=== PATIENT | female | born 1940 | race Caucasian/White ===

== ENCOUNTER 2023-03-25 15:47 | Inpatient (IN) | payer OTHER ==
[2023-03-25] MEDS ORDERED: IPRATROPIUM BROM 0.5MG/2.5ML ONE (16:31)
[2023-03-25] MEDS ORDERED: ALBUTEROL 2.5 MG/3 ML NEB SOL ONE (16:31)
[2023-03-25 17:07] LABS: Absolute Lymphocytes (CBC) 0.5 K/uL (0.7-4.9); Hematocrit 42.2 % (36.0-45.0); Lymphocytes % 5.2 % (15.3-44.8); MCV 91.5 fL (80-100); MPV 7.4 fL (7.6-11.3); RBC Red Blood Cell Count 4.62 M/uL (3.86-4.86)
[2023-03-25 17:09] LABS: Protime INR 1.05
[2023-03-25] MEDS ORDERED: NA CHLORIDE 0.9% 500 ML ONE (17:35)
[2023-03-25 17:37] LABS: Albumin 2.9 g/dL (3.4-5.0); Bilirubin Total 0.4 mg/dL (0.2-1.0); Magnesium 1.8 mg/dL (1.6-2.4); Potassium 2.9 mEq/L (3.5-5.1); Protein, Total 6.8 g/dL (6.4-8.2)
[2023-03-25 18:18] LABS: Specific Gravity 1.018 (1.005-1.030); Urine Bacteria <20 /HPF (<20); Urine Bilirubin NEGATIVE (Negative); Urine Blood Trace (Negative); Urine Clarity Clear (Clear); Urine Color Yellow (Yellow); Urine Crystals Unidentified Few /HPF (None Seen); Urine Glucose NEGATIVE (Negative); Urine Mucus Slight /HPF (None Seen); Urine Protein 1+ (Negative); Urine RBC >50 /HPF (None Seen); Urine Urobilinogen Normal (Normal)
--- NOTE | 2023-03-25 18:23 | RAD REPORT ---
EXAM DESCRIPTION: CT - Head Brain Wo Cont - 03/25/2023 6:12 pm CLINICAL HISTORY: Head injury status post fall. Confusion COMPARISON: None TECHNIQUE: Computed axial tomography of the head was obtained. IV contrast was not requested. All CT scans are performed using dose optimization technique as appropriate and may include automated exposure control or mA/KV adjustment according to patient size. FINDINGS: An intracranial bleed is not seen The ventricles are normal in caliber No extra-axial fluid collection is noted. Moderate low-density areas within periventricular, deep and subcortical white matter likely represent ischemic changes secondary to small vessel disease. Left maxillary sinusitis IMPRESSION: No acute intracranial abnormality is seen If patient's symptoms persist MRI of the brain would be recommended
[2023-03-25 18:24] LABS: Arterial Blood Carboxyhemoglob 2.6 % (0-1.5); Blood Gas Oxyhemoglobin 85.5 % (94-97); Blood O2 Saturation 88.9 % (92-98.5)
--- NOTE | 2023-03-25 18:33 | RAD REPORT ---
EXAM DESCRIPTION: CT - Chest Abdomen Pelvis W Cont - 03/25/2023 6:12 pm CLINICAL HISTORY: Chest and abdominal pain status post fall Cough, hypoxia COMPARISON: none TECHNIQUE: Computed axial tomography of the chest, abdomen and pelvis was obtained. 90 cc Isovue-300 was administered intravenously. Oral contrast was not requested. This limits evaluation of bowel. All CT scans are performed using dose optimization technique as appropriate and may include automated exposure control or mA/KV adjustment according to patient size. FINDINGS: Mild tree-in-bud opacities right upper lobe. No pulmonary contusion A mediastinal hematoma is not seen No pleural effusion. No pericardial effusion. Liver, spleen, pancreas, adrenals, kidneys and bladder do not demonstrate an acute traumatic injury No evidence of diverticulitis Calcifications right common iliac artery result in a high-grade obstruction IMPRESSION: Mild tree-in-bud opacities right upper lobe may indicate an atypical pneumonia
--- NOTE | 2023-03-25 18:34 | RAD REPORT ---
EXAM DESCRIPTION: [place] Single View03/25/2023 4:39 pm CLINICAL HISTORY: Shortness of breath COMPARISON: None FINDINGS: Mild reticular opacities right lung. Left lung is clear The heart is normal size IMPRESSION: Mild reticular opacities right lung may indicate atypical pneumonia
[2023-03-25 19:16] LABS: Potassium 2.7 mEq/L (3.5-5.1)
--- NOTE | 2023-03-25 19:27 | EDPHYS ---
Physician Documentation [facility] Name: Suni Jorgensen Age: 82 yrs Sex: Female : 1940 Arrival Date: 03/25/2023 Time: 15:47 Bed 18 Private MD: ED Physician Maximino Butterfield HPI: 03/25 16:15 This 82 yrs old Female presents to ER via EMS with complaints of General Weakness. cp 16:15 The patient's problem is reported as weakness, that is generalized. Onset: The cp symptoms/episode began/occurred today. Duration: The episode is continuous. 16:15 The patient or guardian reports cough, congestion, shortness of breath. Associated cp signs and symptoms: Pertinent positives: diarrhea, Pertinent negatives: abdominal pain, chest pain, vomiting, fever. Severity of symptoms: in the emergency department the symptoms have improved. Historical: - Allergies: 16:00 PENICILLINS; db 16:00 Cipro; db - PMHx: 16:01 HIGH CHOLESTEROL; db - Immunization history:: Adult Immunizations unknown. - Social history:: Smoking status: Patient denies any tobacco usage or history of. ROS: 16:20 Constitutional: Negative for body aches, chills, fever, poor PO intake. cp 16:20 Cardiovascular: Negative for chest pain, edema. cp Exam: 16:00 ECG was reviewed by the Attending Physician. cp 16:25 Constitutional: The patient appears in no acute distress, alert, awake, cp non-diaphoretic, non-toxic, well developed, well nourished. 16:25 Head/Face: Normocephalic, atraumatic. cp 16:25 Eyes: Periorbital structures: appear normal, Conjunctiva: normal, no exudate, no injection, Sclera: no appreciated abnormality, Lids and lashes: appear normal, bilaterally. 16:25 ENT: External ear(s): are unremarkable, Nose: is normal, Mouth: Lips: moist, Oral mucosa: pink and intact, moist, Posterior pharynx: is normal, airway is patent, no erythema, no exudate. 16:25 Neck: ROM/movement: is normal, is supple, without pain, no range of motions limitations, no meningismus. 16:25 Chest/axilla: Inspection: normal, Palpation: is normal, no crepitus, no tenderness. 16:25 Cardiovascular: Rate: normal, Rhythm: regular, Edema: is not appreciated, JVD: is not appreciated. 16:25 Respiratory: the patient does not display signs of respiratory distress, Respirations: labored breathing, is not present, intercostal retractions, are absent, shallow respirations, are not present, Breath sounds: decreased breath sounds, that are moderate, throughout, stridor, is not appreciated, wheezing: is not appreciated. 16:25 Abdomen/GI: Inspection: abdomen appears normal, Bowel sounds: active, all quadrants, Palpation: abdomen is soft and non-tender, in all quadrants. 16:25 Back: CVA tenderness, is absent. 16:25 Skin: no rash present. 16:25 Neuro: Orientation: to person, place \T\ time. Mentation: is normal, Cerebellar function: is grossly normal, Motor: moves all fours, strength is normal, Sensation: is normal. 18:30 Radiologist reports: CT head negative for acute findings cp Vital Signs: 15:57 BP 201 / 110; Pulse 78; Resp 18; Temp 98.3(O); Pulse Ox 88% on R/A; Weight 53.07 kg; db Height 5 ft. 5 in. ; Pain 0/10; 16:00 BP 187 / 86; Pulse 82; Resp 16; Pulse Ox 90% on 4 lpm NC; db 17:00 BP 148 / 78; Pulse 97; Resp 16; Pulse Ox 92% on 4 lpm NC; db 18:38 BP 157 / 78; Pulse 89; Resp 18; Pulse Ox 94% on 8 lpm NC; db 15:57 Body Mass Index 19.47 (53.07 kg, 165.1 cm) db 15:57 Pain Scale: Adult db 15:57 PATIENT PLACED ON NC 4L O2 INCREASED TO 93% db 18:38 patient placed on 8L per RT db MDM: 16:11 Patient medically screened. cp 17:00 Differential Diagnosis: Bronchitis Influenza Pneumonia Other sepsis, colitis, cp dehydration. 19:30 Data reviewed: vital signs, nurses notes, lab test result(s), EKG, radiologic studies, cp CT scan, plain films. 19:30 Management of patient was discussed with the following: Hospitalist: Christiano Tran NP cp will admit after discussion. Independent interpretation of the following test(s) in the Emergency Department EKG: See my EKG interpretation above. Counseling: I had a detailed discussion with the patient and/or guardian regarding: the historical points, exam findings, and any diagnostic results supporting the discharge/admit diagnosis, lab results, radiology results. Response to treatment: the patient's symptoms have mildly improved after treatment. 03/25 16:14 Order name: CBC with Diff; Complete Time: 17:35 cp 03/25 18:44 Interpretation: Normal except: MPV 7.4; MIKAYLA% 85.1; LYM% 5.2; NEUT A 8.1; LYMA 0.5. cp 03/25 16:14 Order name: Magnesium; Complete Time: 18:05 cp 03/25 16:14 Order name: NT PRO-BNP; Complete Time: 18:05 cp 03/25 18:06 Interpretation: Abnormal: NT PRO-BNP 785. cp 03/25 16:14 Order name: PT-INR; Complete Time: 17:35 cp 03/25 16:14 Order name: Troponin HS; Complete Time: 18:05 cp 03/25 16:14 Order name: CMP; Complete Time: 18:05 cp 03/25 18:06 Interpretation: Normal except: NA 119; K 2.9; CL 78; CO2 34; GLUC 118; CRE 0.44; ALB cp 2.9; GLOB 3.9; A/G 0.7. 03/25 16:14 Order name: Lactate w/ 2H reflex if indic.; Complete Time: 17:35 cp 03/25 16:14 Order name: Influenza Screen (a \T\ B); Complete Time: 17:35 cp 03/25 16:14 Order name: SARS RAPID cp 03/25 16:14 Order name: Urinalysis W/Microscopic; Complete Time: 18:27 cp 03/25 16:37 Order name: COVID-19 SARS RT PCR; Complete Time: 18:05 cp 03/25 16:43 Order name: COVID-19 SARS RT PCR db 03/25 18:07 Order name: ABG; Complete Time: 18:52 cp 03/25 18:07 Order name: BMP: redraw; Complete Time: 19:23 cp 03/25 18:45 Order name: Blood Culture Adult (2) cp 03/25 19:08 Order name: Osmolality, Serum; Complete Time: 20:45 la1 03/25 19:08 Order name: Urine Osmolality la1 03/25 19:08 Order name: Urine Sodium Random 03/25 19:08 Order name: Urine Potassium Random 03/25 19:08 Order name: Urine Creatinine la1 03/25 16:14 Order name: XRAY Chest (1 view); Complete Time: 18:38 cp 03/25 18:38 Interpretation: Report review. 03/25 16:58 Order name: CT Head Brain wo Cont; Complete Time: 18:27 cp 03/25 16:58 Order name: CT Chest, Abdomen, Pelvis - W/Contrast; Complete Time: 18:38 cp 03/25 18:48 Order name: ARTERIAL BLOOD GAS EDIN 03/25 16:14 Order name: EKG; Complete Time: 16:15 cp 03/25 16:14 Order name: Cardiac monitoring; Complete Time: 16:27 cp 03/25 16:14 Order name: EKG - Nurse/Tech; Complete Time: 16:27 cp 03/25 16:14 Order name: IV Saline Lock; Complete Time: 16:27 cp 03/25 16:14 Order name: Labs collected and sent; Complete Time: 16:27 cp 03/25 16:14 Order name: O2 Per Protocol; Complete Time: 16:27 cp 03/25 16:14 Order name: O2 Sat Monitoring; Complete Time: 16:27 cp EC:00 Rate is 81 beats/min. Rhythm is regular. CT interval is normal. QRS interval is normal. cp QT interval is normal. Interpreted by me. Reviewed by me. Administered Medications: 19:35 Discontinued: NS 0.9% IV 500 ml IV at 100 ml/hr continuous la1 16:25 Drug: DuoNeb Nebulize (2.5 mg - 0.5 mg) 3 ml Route: Nebulizer; db 17:20 Follow up: Response: No adverse reaction db 17:39 Drug: NS 0.9% IV 500 ml Route: IV; Rate: 100 ml/hr; Site: left antecubital; db 20:28 Drug: Potassium Chloride IV 20 mEq Route: IV; Rate: calculated rate; Site: left wrist; jb4 20:28 Drug: Lactated Ringers Solution IV 1000 ml Route: IV; Rate: 50 ml/hr; Site: left jb4 antecubital; 20:29 Drug: Zithromax IVPB 500 mg Route: IVPB; Infused Over: 1 hrs; Site: left wrist; jb4 20:29 Drug: Rocephin IV 1 grams Route: IV; Rate: calculated rate; Site: left antecubital; jb4 20:29 Drug: MethylPrednisoLONE IVP 80 mg Route: IVP; Site: left antecubital; jb4 20:29 Drug: Potassium PO Effervescent Tablet 50 mEq Route: PO; jb4 Disposition: 03/26 14:25 Co-signature as Attending Physician, Maximino Butterfield MD I reviewed the patient's care rn provided by the Advanced Practice Provider and agree with the diagnosis and treatment plan. Disposition Summary: 03/25/23 19:26 Hospitalization Ordered Hospitalization Status: Inpatient Admission cp Provider: Manuel Coles cp Condition: Stable cp Problem: new cp Symptoms: have improved cp Bed/Room Type: Standard cp Location: Intensive Care Unit(03/25/23 19:35) cp Room Assignment: 1-(03/25/23 20:28) rn Diagnosis - Pneumonia in diseases classified elsewhere cp - Diarrhea, unspecified cp - Hypo-osmolality and hyponatremia cp - Weakness cp Forms: - Medication Reconciliation Form cp - SBAR form cp Signatures: Dispatcher [employer] Maximino Orr MD MD rn Attema, Lee, DATA COLLECTOR-C DATA COLLECTOR-Cla1 Jan Aaron PA PA cp Bruno Posada, RN RN jb4 Michelle Birmingham RN RN db Corrections: (The following items were deleted from the chart) 03/25 19:35 19:26 Telemetry/MedSurg (Inpatient) cp cp 19:35 19:26 cp cp 20:28 19:35 cp rn
--- NOTE | 2023-03-25 19:27 | ER ---
Nurse's Notes [facility] Name: Suni Jorgensen Age: 82 yrs Sex: Female : 1940 Arrival Date: 03/25/2023 Time: 15:47 Bed 18 Private MD: Diagnosis: Pneumonia in diseases classified elsewhere;Diarrhea, unspecified;Hypo-osmolality and hyponatremia;Weakness Presentation: 03/25 15:57 Chief complaint: EMS states: PATIENT FROM HOME CALLED EMS FOR COUGH CONGESTION, GENERAL db WEAKNESS AND DIARRHEA. PATIENT FELL YESTERDAY DENIES INJURY DENIES HITTING HEAD AND DENIES LOC. NO BLOOD THINNERS. GLUCOSE 129. PATIENT GIVEN ZOFRAN 4MG IVP. Coronavirus screen: Vaccine status: Patient reports receiving the 2nd dose of the covid vaccine. Client denies travel out of the [place] in the last 14 days. At this time, the client does not indicate any symptoms associated with coronavirus-19. Ebola Screen: Patient negative for fever greater than or equal to 101.5 degrees Fahrenheit, and additional compatible Ebola Virus Disease symptoms Patient denies exposure to infectious person. Patient denies travel to an Ebola-affected area in the 21 days before illness onset. No symptoms or risks identified at this time. Initial Sepsis Screen: Does the patient meet any 2 criteria? No. Patient's initial sepsis screen is negative. Does the patient have a suspected source of infection? No. Patient's initial sepsis screen is negative. Risk Assessment: Do you want to hurt yourself or someone else? Patient reports no desire to harm self or others. Onset of symptoms was March 25, 2023. 15:57 Method Of Arrival: EMS: [facility] db 15:57 Acuity: MALINDA 2 db Triage Assessment: 16:01 General: Appears in no apparent distress. comfortable, Behavior is calm, cooperative. db Pain: Denies pain. Neuro: Level of Consciousness is awake, alert, obeys commands, Oriented to person, place, time, situation, Appropriate for age. Historical: - Allergies: 16:00 PENICILLINS; db 16:00 Cipro; db - PMHx: 16:01 HIGH CHOLESTEROL; db - Immunization history:: Adult Immunizations unknown. - Social history:: Smoking status: Patient denies any tobacco usage or history of. Screenin:03 [facility] ED Fall Risk Assessment (Adult) History of falling in the last 3 months, db including since admission Yes- single mechanical fall (1 pt) Confusion or Disorientation No (0 pts) Intoxicated or Sedated No (0 pts) Impaired Gait No (0 pts) Mobility Assist Device Used Yes (1 pt) Altered Elimination No (0 pt) Score/Fall Risk Level 0 - 2 = Low Risk Oriented to surroundings, Maintained a safe environment. Abuse screen: Denies threats or abuse. Denies injuries from another. Nutritional screening: No deficits noted. Tuberculosis screening: No symptoms or risk factors identified. Assessment: 16:03 Reassessment: SEE TRIAGE FOR INITIAL ASSESSMENT. db 17:15 Reassessment: PATIENT AMBULATORY TO RESTROOM. db 17:38 Reassessment: Patient appears in no apparent distress at this time. Patient and/or db family updated on plan of care and expected duration. Pain level reassessed. Patient is alert, oriented x 3, equal unlabored respirations, skin warm/dry/pink. General: Appears in no apparent distress. Behavior is calm, cooperative. 18:05 Reassessment: patient in CT. db Vital Signs: 15:57 BP 201 / 110; Pulse 78; Resp 18; Temp 98.3(O); Pulse Ox 88% on R/A; Weight 53.07 kg; db Height 5 ft. 5 in. ; Pain 0/10; 16:00 BP 187 / 86; Pulse 82; Resp 16; Pulse Ox 90% on 4 lpm NC; db 17:00 BP 148 / 78; Pulse 97; Resp 16; Pulse Ox 92% on 4 lpm NC; db 18:38 BP 157 / 78; Pulse 89; Resp 18; Pulse Ox 94% on 8 lpm NC; db 15:57 Body Mass Index 19.47 (53.07 kg, 165.1 cm) db 15:57 Pain Scale: Adult db 15:57 PATIENT PLACED ON NC 4L O2 INCREASED TO 93% db 18:38 patient placed on 8L per RT db ED Course: 15:56 Patient arrived in ED. db 16:00 Triage completed. db 16:01 Jan Aaron PA is PHCP. cp 16:01 Arm band placed on Patient placed in an exam room. db 16:02 Maximino Butterfield MD is Attending Physician. cp 16:02 Maintain EMS IV. Dressing intact. Good blood return noted. Site clean \T\ dry. Gauge \T\ db site: 20G LEFT AC. 16:27 Michelle Birmingham, RN is Primary Nurse. db 16:41 XRAY Chest (1 view) In Process Unspecified. EDMS 18:14 CT Head Brain wo Cont In Process Unspecified. EDMS 18:14 CT Chest, Abdomen, Pelvis - W/Contrast In Process Unspecified. EDMS 19:11 Patient has correct armband on for positive identification. Bed in low position. Call db light in reach. Side rails up X 1. Provided Education on:. 19:25 Manuel Coles MD is Hospitalizing Provider. cp 20:20 Inserted saline lock: 22 gauge in left wrist, using aseptic technique. Blood collected. jb4 20:20 Second set of blood cultures drawn by me. jb4 21:30 Patient admitted, IV remains in place. jb4 Administered Medications: 19:35 Discontinued: NS 0.9% IV 500 ml IV at 100 ml/hr continuous la1 16:25 Drug: DuoNeb Nebulize (2.5 mg - 0.5 mg) 3 ml Route: Nebulizer; db 17:20 Follow up: Response: No adverse reaction db 17:39 Drug: NS 0.9% IV 500 ml Route: IV; Rate: 100 ml/hr; Site: left antecubital; db 20:28 Drug: Potassium Chloride IV 20 mEq Route: IV; Rate: calculated rate; Site: left wrist; jb4 20:28 Drug: Lactated Ringers Solution IV 1000 ml Route: IV; Rate: 50 ml/hr; Site: left jb4 antecubital; 20:29 Drug: Zithromax IVPB 500 mg Route: IVPB; Infused Over: 1 hrs; Site: left wrist; jb4 20:29 Drug: Rocephin IV 1 grams Route: IV; Rate: calculated rate; Site: left antecubital; jb4 20:29 Drug: MethylPrednisoLONE IVP 80 mg Route: IVP; Site: left antecubital; jb4 20:29 Drug: Potassium PO Effervescent Tablet 50 mEq Route: PO; jb4 Outcome: 19:26 Decision to Hospitalize by Provider. cp 21:29 Admitted to ICU accompanied by nurse, via stretcher, room ICU 1, with oxygen, on jb4 monitor, with chart. 21:29 Condition: stable 21:29 Discharge instructions given to patient, Instructed on the need for admit, Demonstrated understanding of instructions. 21:30 Patient left the ED. jb4 Signatures: Dispatcher [employer] EDMS Jan Aaron PA PA cp Bryson, James RN RN jb4 Michelle Birmingham RN RN db
--- NOTE | 2023-03-25 19:57 | P.HP ---
Certification for Inpatient Patient admitted to: Inpatient With expected LOS: >2 Midnights Patient will require the following post-hospital care: None Practitioner: I am a practitioner with admitting privileges, knowledge of patient current condition, hospital course, and medical plan of care. Services: Services provided to patient in accordance with Admission requirements found in Title 42 Section 412.3 of the Code of Federal Regulations Patient History Date of Service: 03/25/23 Reason for admission: Hyponatremia, pneumonia History of Present Illness: 82-year-old female with history of hypertension, hyperlipidemia presents to the emergency department with chief complaint of general weakness, shortness of breath, cough. She reports she has been feeling unwell over the course of the last 2 to 3 weeks with cough, poor oral intake over the course of last 1 week or so. She is noted to be mildly hypoxic on room air satting around 88% currently tolerating nasal cannula 3 to 4 L. She was evaluated in the ER her labs were significant for hyponatremia sodium 115 potassium 3.7 chloride 74 bicarb 33 BNP [address] head negative for acute findings CT chest abdomen pelvis with contrast shows mild tree-in-bud opacities right upper lobe may indicate atypical pneumonia. Also incident finding calcifications right common iliac artery resulting high-grade obstruction. Patient without any pain, numbness or temperature change in the right lower extremity she denies any complaints at this currently at all. Home med review does show that she takes valsartan/hydrochlorothiazide and has had poor oral intake over the course of the last week or so, she does not appear overloaded at all at this time, she will need to be admitted to the ICU given the degree of hyponatremia. Allergies Penicillins Adverse Reaction (Verified 05/14/17 13:54) peeling to hands Home Medications: Amlodipine Besylate/Benazepril [Amlodipine-Benazepril 10-20 mg] 1 each PO [id number] 05/14/17 Metoprolol Succinate [Toprol Xl] 100 mg PO BEDTIME 05/14/17 Simvastatin 20 mg PO DAILY 05/14/17 - Past Medical/Surgical History -: Hypertension -: Hyperlipidemia -: Diverticulitis -: Bilateral mastectomy -: Partial bowel resection Psychosocial/ Personal History: Patient lives at home, alone. - Family History Family History: Reviewed- Non-Contributory - Social History Smoking Status: Never smoker Alcohol use: No CD- Drugs: No Caffeine use: Yes Place of Residence: Home Review of Systems 10-point ROS is otherwise unremarkable Respiratory: Cough, Shortness of Breath, SOB with Excertion Gastrointestinal: Nausea Physical Examination - Physical Exam General: Alert, In no apparent distress, Oriented x3 HEENT: Atraumatic, PERRLA, Mucous membr. moist/pink, EOMI, Sclerae nonicteric Neck: Supple, 2+ carotid pulse no bruit, No LAD, Without JVD or thyroid abnormality Respiratory: Clear to auscultation bilaterally, Normal air movement Cardiovascular: Regular rate/rhythm, Normal S1 S2 Capillary refill: <2 Seconds Gastrointestinal: Normal bowel sounds, No tenderness Musculoskeletal: No tenderness Integumentary: No rashes Neurological: Normal speech, Normal strength at 5/5 x4 extr, Normal tone, Normal affect - Studies Laboratory Data (last 24 hrs) 03/25/23 18:32: Sodium 115 L* D, Potassium 2.7 L, BUN 15, Creatinine 0.54 L, Glucose 128 H 03/25/23 16:50: PT 11.6, INR 1.05 03/25/23 16:50: Sodium 119 L*, Potassium 2.9 L, BUN 16, Creatinine 0.44 L, Glucose 118 H, Magnesium 1.8, Total Bilirubin 0.4, AST 23, ALT 27, Alkaline Phosphatase 64 03/25/23 16:50: WBC 9.50, Hgb 14.4, Hct 42.2, Plt Count 158 Microbiology Data (last 24 hrs): 03/25/23 16:47 Nasopharnyx Influenza Type A Antigen Screen - Final 03/25/23 16:47 Nasopharnyx Influenza Type B Antigen Screen - Final Assessment and Plan - Plan Assessment: Acute hypoxic respiratory failure secondary to atypical pneumonia Hyponatremia, hypokalemia Hypertension Hyperlipidemia Plan: Acute hypoxic respiratory failure secondary to atypical pneumonia Continue supplemental oxygen as needed, antibiotics Rocephin/Zithromax, Daily room air saturations, and incentive spirometry. Hyponatremia, hypokalemia Likely secondary to use of hydrochlorothiazide and poor oral intake over the course of the last 1 week. We will start with gentle hydration LR at 50 cc an hour, recheck chemistry every 4, potassium replaced in ED. Hypertension Hold HCTZ, continue other home medications. Hyperlipidemia Continue medications. DVT PPX:Lovenox Code status:Full Discharge Plan: Home Plan to discharge in: Greater than 2 days - Advance Directives Does patient have a Living Will: Yes Does patient have a Durable POA for Healthcare: Yes - Code Status/Comfort Care Code Status Assessed: Yes (Full code) Critical Care: No Time Spent Managing Pts Care (In Minutes): 70
[2023-03-25] MEDS ORDERED: CEFTRIAXONE 1000 MG/VIAL ONE (20:07)
[2023-03-25] MEDS ORDERED: METHYLPREDNISOLONE 40 MG INJ ONE (20:07)
[2023-03-25] MEDS ORDERED: NA CHLORIDE 0.9% 250 ML ONE (20:08)
[2023-03-25] MEDS ORDERED: POTASSIUM 25 MEQ EFFERV TAB ONE (20:08)
[2023-03-25] MEDS ORDERED: Ringers Lactate 1,000 ML IV ONE (20:08)
[2023-03-25] MEDS ORDERED: KCL 20 MEQ/100 mL IVPB 100 ML IV ONE (20:08)
[2023-03-25] MEDS ORDERED: AZITHROMYCIN 500 MG INJ IVPB ONE (20:08)
[2023-03-25] MEDS ORDERED: ALBUTEROL 2.5 MG/3 ML NEB SOL NEB PRN (21:41)
[2023-03-25] MEDS ORDERED: ONDANSETRON 4 MG/2 ML VIAL IV PRN (21:41)
[2023-03-26] MEDS: Ringers Lactate 1,000 ML IV SCH ×2 (00:55→14:03)
[2023-03-26 01:02] LABS: Potassium 4.4 mEq/L (3.5-5.1)
[2023-03-26 04:27] LABS: Absolute Lymphocytes (CBC) 0.3 K/uL (0.7-4.9); Hematocrit 38.6 % (36.0-45.0); Lymphocytes % 5.3 % (15.3-44.8); MCV 91.4 fL (80-100); MPV 7.3 fL (7.6-11.3); RBC Red Blood Cell Count 4.23 M/uL (3.86-4.86)
[2023-03-26 04:48] LABS: Blood Morphology Comment NOT SEEN (NOT SEEN); Platelet Estimate ADEQ
[2023-03-26 04:54] LABS: Magnesium 1.8 mg/dL (1.6-2.4); Phosphorus 2.6 mg/dL (2.5-4.9); Thyroid Stimulating Hormone 0.39 uIU/mL (0.358-3.740); Uric Acid 3.2 mg/dL (2.6-6.0)
[2023-03-26 04:59] LABS: Potassium 4.3 mEq/L (3.5-5.1)
[2023-03-26 05:12] VITALS: BMI 19.4
[2023-03-26] MEDS ORDERED: MAGNESIUM SULFATE 1 gm IVPB 1 GM/100 ML BAG IV ONE (05:20)
[2023-03-26] MEDS ORDERED: PNEUMOCOCCAL VACCINE 0.5 ML IMVAC ONE ×2 (08:00→17:00)
[2023-03-26 08:55] LABS: Potassium 3.9 mEq/L (3.5-5.1)
[2023-03-26] MEDS: ENOXAPARIN 40 MG/0.4 ML SQ SCH (09:34)
--- NOTE | 2023-03-26 12:03 | EKG ---
Test Date: 2023-03-25 Test Time: 15:53:21 Inventory Specialist Manager: CORNELIA MEASUREMENT RESULTS: Intervals: Rate: 81 LA: 146 QRSD: 86 QT: 390 QTc: 453 [place]: P: 44 LA: 146 QRS: 63 T: 79 INTERPRETIVE STATEMENTS: Sinus rhythm with premature supraventricular complexes and with frequent and consecutive premature ventricular complexes Possible Left atrial enlargement Left ventricular hypertrophy with repolarization abnormality Abnormal ECG Compared to ECG 05/14/2017 14:10:40 Atrial premature complex(es) now present Ventricular premature complex(es) now present Left ventricular hypertrophy now present Early repolarization now present Electronically Signed On 03-26-23 12:02:04 CDT by Missael Santos
--- NOTE | 2023-03-26 12:24 | P.PN ---
Subjective Date of Service: 03/26/23 Chief Complaint: Hyponatremia, pneumonia No acute events since admission. She reports that her shortness of breath has improved. Sodium is gradually improving. She denies any fevers, chills, chest pain, or palpitations. Review of Systems 10-point ROS is otherwise unremarkable Respiratory: Cough, Shortness of Breath Physical Examination - Vital Signs Temperature: 97.9 F Blood Pressure: 140/95 Pulse: 112 Respirations: 20 Pulse Ox (%): 99 - Physical Exam General: Alert, In no apparent distress, Oriented x3 HEENT: Atraumatic, Mucous membr. moist/pink, Sclerae nonicteric Neck: JVD not distended Respiratory: Diminished, Rhonchi/gurgles (faint upper right lung pickard) Cardiovascular: No edema, Normal S1 S2, No gallops, No rubs, No murmurs, Other (tachycardic rate) Gastrointestinal: Normal bowel sounds, Soft and benign, Non-distended, No tenderness, No rebound, No guarding Musculoskeletal: No clubbing Integumentary: No rashes Neurological: Normal speech, Normal affect - Studies Laboratory Data (last 24 hrs) 03/25/23 18:32: Sodium 115 L* D, Potassium 2.7 L, BUN 15, Creatinine 0.54 L, Glucose 128 H 03/25/23 16:50: PT 11.6, INR 1.05 03/25/23 16:50: Sodium 119 L*, Potassium 2.9 L, BUN 16, Creatinine 0.44 L, Glucose 118 H, Magnesium 1.8, Total Bilirubin 0.4, AST 23, ALT 27, Alkaline Phosphatase 64 03/25/23 16:50: WBC 9.50, Hgb 14.4, Hct 42.2, Plt Count 158 Microbiology Data (last 24 hrs): 03/25/23 16:47 Nasopharnyx Influenza Type A Antigen Screen - Final 03/25/23 16:47 Nasopharnyx Influenza Type B Antigen Screen - Final Assessment And Plan - Plan # Sepsis likely secondary to Atypical Pneumonia # Left Maxillary Sinusitis She meets SIRS criteria based on HR > 90 bpm and RR > 20 breaths/min, and the suspected source is pneumonia. Legionella is on the differential given hyponatremia. - Radiology: - Chest x-ray = "mild reticular opacities right lung may indicate atypical pneumonia." - CT chest/abdomen/pelvis = "mild tree-in-bud opacities right upper lobe may indicate an atypical pneumonia." - CT head = "no acute intracranial abnormality is seen." - Sepsis order set was initiated - Initial Lactate was 0.9 - Blood cultures drawn - Broad spectrum antibiotics started: Ceftriaxone + Doxycycline - In regards to fluids: - 30 mL/kg of IV fluids was not administered given SBP > 90, MAP > 65, lactic acid < 4 # Severe Hyponatremia # Hypokalemia - Suspect due to hydrochlorothiazide use - Continue IV fluids for now - Nephrology consulted - recommendations appreciated # Hypertension - Hold home anti-hypertensives due to concern for sepsis # Hyperlipidemia - Continue home atorvastatin Manuel Coles M.D.
[2023-03-26 13:02] LABS: Albumin 2.8 g/dL (3.4-5.0); Bilirubin Total 0.4 mg/dL (0.2-1.0); Potassium 4.1 mEq/L (3.5-5.1); Protein, Total 6.9 g/dL (6.4-8.2); Uric Acid 3.1 mg/dL (2.6-6.0)
[2023-03-26] MEDS: DOXYCYCLINE 100 MG in NA CHLORIDE 0.9% 100 ML IVPB SCH ×2 (13:56→20:31)
[2023-03-26] MEDS ORDERED: AZITHROMYCIN IV 500 MG in NA CHLORIDE 0.9% 250 ML IVPB SCH (18:00)
[2023-03-26] MEDS ORDERED: CEFTRIAXONE 1,000 MG in NA CHLORIDE 0.9% 50 ML IVPB SCH (20:00)
[2023-03-26] MEDS: ATORVASTATIN 10 MG TAB PO SCH (20:31)
[2023-03-26 20:58] LABS: Potassium 4.4 mEq/L (3.5-5.1)
[2023-03-26] MEDS ORDERED: NACHLORIDE 0.45% 1,000 ML IV SCH (22:00)
[2023-03-26] MEDS ORDERED: D5W 300 ML IV SCH (22:00)
[2023-03-27] MEDS ORDERED: NACHLORIDE 0.45% 1,000 ML IV SCH
[2023-03-27] MEDS ORDERED: D5W IV SCH ×2 (02:09→02:17)
[2023-03-27] MEDS ORDERED: DESMOPRESSIN 4 MCG/ML AMP SQ ONE ×2 (02:19→03:02)
[2023-03-27] MEDS ORDERED: DESMOPRESSIN 4 MCG/ML AMP IV ONE (02:23)
--- NOTE | 2023-03-27 03:44 | CON ---
Date of Consultation: 03/26/2023 Chief Complaint: Hyponatremia, pneumonia. History Of Present Illness: The patient is an 82-year-old woman with history of hypertension, hyperl ipidemia. She recently had office visit with her primary physician and medication for blood pressure were modified. Apparently, she was started on HCTZ in the recent past. She came to the emergency r oom progressively worse, weakness, shortness of breath, and cough. She was found to have pneumonia. She had hypoxemic respiratory failure and SpO2 was 88%. Patient currently on nasal cannula and admi tted to ICU. ER workup showed significant hyponatremia. Sodium level was 118, subsequently dropped to 115; potassium 3.7; chloride 74; bicarbonate 33, BNP 785. CT scan of the head was negative for ac t[place] finding. CT scan of the chest and pelvis with contrast showed mild opacities in right upper lobe , which may indicate atypical pneumonia. Patient was having cough. She was complaining of fever. R ecently, she was started on valsartan and hydrochlorothiazide, although she had poor p.o. intake. Sh e denied diarrhea and she denies nausea, vomiting. She denies confusion or seizure. Review of Systems: Constitutional: Denies fever, chills. Eyes: Denies vision changes. Ears, Nose, Mouth, and Throat: Denies sore throat or earache. Respiratory: Denies chest pain, palpitation. GI: Denies nausea, vomiting. : Denies dysuria, hematuria. All other systems reviewed and all are negative. Past Medical History: Hypertension, hyperlipidemia, diverticulitis, bilateral mastectomy, partial caron wel obstruction. Family History: No kidney disease in family. Social History: Denies tobacco, alcohol, or illicit drugs. Physical Examination: General: Patient is awake, alert, follows commands. Eyes: Anicteric sclerae. EOMI. Ears, Nose, Mouth, and Throat: Oral mucosa moist. No pallor. Neck: Supple. No bruits. Lungs: Diminished breath sounds at bases. Heart: S1 and S2. Abdomen: Soft, benign. Extremities: No edema. No clubbing. No cyanosis. Neurologic: Normal speech. No tremor. Normal strength at 5/5 in 4 extremities. Laboratory Data: lab work showed sodium 119, potassium 2.9, BUN 16, creatinine 0.44, glucose 118. S ubsequently, sodium dropped to 115, potassium 2.7, BUN 15, creatinine 0.54, glucose 128. Impression And Plan: Hypoxemic respiratory failure with pneumonia. Patient is on antibiotics. The patient has history of hypertension and HCTZ was stopped due to progressively worse hyponatremia. Th e patient was started on IV fluids for hyponatremia, likely culprit for hyponatremia is HCTZ, althoug h due to the fact that patient has pneumonia, high ADH state is also a culprit for hyponatremia. Mateo id HCTZ. Patient will continue IV fluids. The plan is to monitor electrolytes. The patient was fou nd to have hypokalemia, receives replacement. Monitor potassium level. The patient needs to have TS H level checked for possible hypothyroidism. EB/MODL Voice ID: [id number] Report ID: [id number]
[2023-03-27 04:38] LABS: Absolute Lymphocytes (CBC) 0.8 K/uL (0.7-4.9); Hematocrit 37.1 % (36.0-45.0); Lymphocytes % 11.8 % (15.3-44.8); MCV 92.1 fL (80-100); MPV 7.1 fL (7.6-11.3); RBC Red Blood Cell Count 4.03 M/uL (3.86-4.86)
[2023-03-27 04:56] LABS: Potassium 3.5 mEq/L (3.5-5.1)
[2023-03-27 04:57] LABS: Magnesium 1.9 mg/dL (1.6-2.4); Phosphorus 1.6 mg/dL (2.5-4.9)
[2023-03-27] MEDS ORDERED: D5W 300 ML IV SCH (05:30)
[2023-03-27] MEDS ORDERED: POTASSIUM CL SA 10 MEQ TAB PO ONE (08:00)
[2023-03-27 08:04] LABS: Potassium 3.3 mEq/L (3.5-5.1)
[2023-03-27] MEDS: POTASS/SODIUM PHOSPHATE 1 PKT POWD.PACK PO SCH ×3 (08:12→09:40)
[2023-03-27] MEDS: ENOXAPARIN 40 MG/0.4 ML SQ SCH (08:21)
[2023-03-27] MEDS: CEFTRIAXONE 1,000 MG in NA CHLORIDE 0.9% 50 ML IVPB SCH (08:30)
[2023-03-27] MEDS: HYDRALAZINE HCL 20 MG/ML VIAL IV PRN ×2 (09:39→16:33)
[2023-03-27] MEDS: DOXYCYCLINE 100 MG in NA CHLORIDE 0.9% 100 ML IVPB SCH ×2 (09:44→20:17)
[2023-03-27 12:14] LABS: Potassium 3.5 mEq/L (3.5-5.1)
--- NOTE | 2023-03-27 14:30 | P.PN ---
Subjective Date of Service: 03/27/23 Chief Complaint: Hyponatremia, pneumonia Subjective: No new changes Physical Examination - Vital Signs Temperature: 97.2 F Blood Pressure: 187/84 Pulse: 96 Respirations: 17 Pulse Ox (%): 90 - Physical Exam General: Other (appears as her stated age) HEENT: Atraumatic, Normocephalic Neck: Supple, JVD not distended Respiratory: Other (symmetric chest expansion) Cardiovascular: No rubs, No murmurs Gastrointestinal: Soft and benign, No rebound Musculoskeletal: No clubbing Integumentary: No warmth Neurological: Normal tone Urinary: Other (no bladder distention) External genitalia: Deferred Rectal: Deferred Assessment And Plan - Plan # Hyponatremia 2/2 high ADH state from dyspnea/HCTZ + hypokalemia + low solute intake Serum Na 119 on adm, improved to 128, decreased to 123 again Give Tolvaptan po x 1 dose when available BNP sig elevated. Minimize IVF. Encourage to inc po solid food intake tid Avoid thiazide permanently # Htn Resume Metoprolol XL 100 mg po daily Resume Valsartan 40 mg po daily Labetalol IV prn Hydralazine IV prn Avoid HCTZ # Acute respi failure 2/2 pna Abx F/u cultures # Sepsis 2/2 pna & left maxillary sinusitis Abx # Hypokalemia KCl repletion prn # HLD Statin
[2023-03-27] MEDS: VALSARTAN 40 MG TAB PO SCH (17:06)
[2023-03-27] MEDS: METOPROLOL XL 100 MG TAB PO SCH (17:06)
[2023-03-27] MEDS: ATORVASTATIN 10 MG TAB PO SCH (20:18)
--- NOTE | 2023-03-28 00:30 | P.PN ---
Subjective Date of Service: 03/28/23 Chief Complaint: Hyponatremia, pneumonia She reports that her symptoms are gradually improving. Sodium is trending upwards. She denies any fevers, chills, chest pain, or palpitations. Review of Systems 10-point ROS is otherwise unremarkable General: Weakness (generalized) Physical Examination - Vital Signs Temperature: 98.6 F Blood Pressure: 164/63 Pulse: 84 Respirations: 16 Pulse Ox (%): 94 Assessment And Plan - Plan - Physical Exam General: Alert, In no apparent distress, Oriented x3 HEENT: Atraumatic, Mucous membr. moist/pink, Sclerae nonicteric Respiratory: Diminished, Rhonchi/gurgles (faint upper right lung pickard) Cardiovascular: No edema, No murmurs, Regular rate/rhythm Gastrointestinal: Soft, Non-distended, No tenderness Musculoskeletal: No clubbing Integumentary: No rashes Neurological: Normal speech, Normal affect # Sepsis likely secondary to Atypical Pneumonia # Left Maxillary Sinusitis She meets SIRS criteria based on HR > 90 bpm and RR > 20 breaths/min, and the suspected source is pneumonia. Legionella is on the differential given hyponatremia. - Radiology: - Chest x-ray = "mild reticular opacities right lung may indicate atypical pneumonia." - CT chest/abdomen/pelvis = "mild tree-in-bud opacities right upper lobe may indicate an atypical pneumonia." - CT head = "no acute intracranial abnormality is seen." - Sepsis order set was initiated - Initial Lactate was 0.9 - Blood cultures drawn - Broad spectrum antibiotics started: Ceftriaxone + Doxycycline - In regards to fluids: - 30 mL/kg of IV fluids was not administered given SBP > 90, MAP > 65, lactic acid < 4 # Severe Hyponatremia # Hypokalemia - Suspect due to hydrochlorothiazide use - Continue IV fluids for now - Nephrology consulted - recommendations appreciated - Ordered TSH # Hypertension - Hold home anti-hypertensives due to concern for sepsis # Hyperlipidemia - Continue home atorvastatin Manuel Coles M.D.
[2023-03-28 02:58] LABS: Absolute Lymphocytes (CBC) 1.2 K/uL (0.7-4.9); Hematocrit 38.5 % (36.0-45.0); Lymphocytes % 15.4 % (15.3-44.8); MCV 91.8 fL (80-100); MPV 7.2 fL (7.6-11.3); RBC Red Blood Cell Count 4.19 M/uL (3.86-4.86)
[2023-03-28 03:11] LABS: Magnesium 1.7 mg/dL (1.6-2.4); Phosphorus 1.9 mg/dL (2.5-4.9)
[2023-03-28 03:15] LABS: Potassium 3.5 mEq/L (3.5-5.1)
[2023-03-28] MEDS ORDERED: POTASSIUM CL SA 10 MEQ TAB PO ONE ×2 (06:30→08:57)
[2023-03-28] MEDS: CEFTRIAXONE 1,000 MG in NA CHLORIDE 0.9% 50 ML IVPB SCH (07:48)
[2023-03-28] MEDS: ENOXAPARIN 40 MG/0.4 ML SQ SCH (07:49)
[2023-03-28] MEDS: VALSARTAN 40 MG TAB PO SCH (07:49)
[2023-03-28] MEDS: HYDRALAZINE HCL 20 MG/ML VIAL IV PRN (07:53)
[2023-03-28] MEDS: DOXYCYCLINE 100 MG in NA CHLORIDE 0.9% 100 ML IVPB SCH ×2 (09:00→20:10)
[2023-03-28] MEDS ORDERED: TOLVAPTAN 15 MG TABLET PO SCH (10:00)
[2023-03-28 11:07] LABS: Potassium 3.6 mEq/L (3.5-5.1)
[2023-03-28] MEDS: LABETALOL 20 MG/4ML SYRINGE IV PRN (12:43)
[2023-03-28 16:15] LABS: Potassium 4.3 mEq/L (3.5-5.1)
[2023-03-28] MEDS ORDERED: D5W 1,000 ML IV SCH (20:00)
--- NOTE | 2023-03-28 20:20 | P.PN ---
Subjective Date of Service: 03/28/23 Chief Complaint: Hyponatremia, pneumonia No acute events overnight. She states that her breathing has improved, but she has been experiencing generalized weakness. She denies any fevers, chills, chest pain, or palpitations. Review of Systems 10-point ROS is otherwise unremarkable General: Weakness (generalized) Respiratory: Shortness of Breath Physical Examination - Vital Signs Temperature: 98.6 F Blood Pressure: 169/91 Pulse: 83 Respirations: 16 Pulse Ox (%): 96 Assessment And Plan - Plan - Physical Exam General: Alert, In no apparent distress, Oriented x3 HEENT: Atraumatic, Mucous membr. moist/pink, Sclerae nonicteric Respiratory: Diminished, Rhonchi/gurgles (faint upper right lung pickard) Cardiovascular: No edema, No murmurs, Regular rate/rhythm Gastrointestinal: Soft, Non-distended, No tenderness Musculoskeletal: No clubbing Integumentary: No rashes Neurological: Normal speech, Normal affect # Sepsis likely secondary to Atypical Pneumonia # Left Maxillary Sinusitis She meets SIRS criteria based on HR > 90 bpm and RR > 20 breaths/min, and the suspected source is pneumonia. Legionella is on the differential given hyponatremia. - Radiology: - Chest x-ray = "mild reticular opacities right lung may indicate atypical pneumonia." - CT chest/abdomen/pelvis = "mild tree-in-bud opacities right upper lobe may indicate an atypical pneumonia." - CT head = "no acute intracranial abnormality is seen." - Sepsis order set was initiated - Initial Lactate was 0.9 - Blood cultures drawn - Broad spectrum antibiotics started: Ceftriaxone + Doxycycline - In regards to fluids: - 30 mL/kg of IV fluids was not administered given SBP > 90, MAP > 65, lactic acid < 4 # Severe Hyponatremia # Hypokalemia - Suspect due to hydrochlorothiazide use - Continue IV fluids for now - Nephrology consulted - recommendations appreciated Plan to start desmopressin - TSH = 0.39 # Hypertension - Hold home anti-hypertensives due to concern for sepsis # Hyperlipidemia - Continue home atorvastatin Manuel Coles M.D.
[2023-03-28] MEDS: METOPROLOL XL 100 MG TAB PO SCH (21:26)
[2023-03-28] MEDS: ATORVASTATIN 10 MG TAB PO SCH (21:27)
--- NOTE | 2023-03-29 02:24 | PN ---
Date of Progress Note: 03/28/2023 Chief Complaint: Hyponatremia, pneumonia. History Of Present Illness: The patient came to the hospital because of shortness of breath, general ized weakness, dyspnea. She was found to have pneumonia and hyponatremia. She had a CT scan done wi contrast. Sodium on arrival to admission was 119 and improved to 128 and then decreased to 123. The patient received tolvaptan 1 dose yesterday and BNP is elevated. Plan is to minimize IV fluids. Review of Systems: Denies chest pain, palpitation. Physical Examination: Lungs: Diminished breath sounds at bases. Heart: S1, S2. Abdomen: Soft, benign. Extremities: No edema. Impression And Plan: 1.Hyponatremia secondary to ADH state from dyspnea, pneumonia. In addition, the patient had hyponat remia secondary to HCTZ complicated by hypokalemia due to low solute intake and diuretic treatment. Plan is to avoid thiazide permanently. Monitor BNP. Minimize IV fluids. Continue hydration by mout h. Avoid normal saline infusion. At this point, sodium level is improving. Monitor BMP closely. 2.Hypertension. Resume metoprolol XL 100 p.o. daily. The patient is on valsartan for blood pressur e control. Avoid HCTZ. 3.Acute respiratory failure secondary to pneumonia. Continue antibiotics. 4.Sepsis secondary to pneumonia and left maxillary sinusitis on antibiotics. 5.Hypokalemia. Monitor magnesium and phosphorus level. Continue treatment with potassium chloride and potassium phosphate. Monitor magnesium level closely and eulalia nue IV magnesium sulphate. EB/MODL Voice ID: [id number] Report ID: [id number]
[2023-03-29 03:48] LABS: Magnesium 1.9 mg/dL (1.6-2.4); Phosphorus 2.1 mg/dL (2.5-4.9); Potassium 4.1 mEq/L (3.5-5.1)
[2023-03-29] MEDS: LABETALOL 20 MG/4ML SYRINGE IV PRN (05:47)
[2023-03-29] MEDS: POTASS/SODIUM PHOSPHATE 1 PKT POWD.PACK PO SCH ×3 (06:46→10:00)
[2023-03-29] MEDS ORDERED: POTASS/SODIUM PHOSPHATE 1 PKT POWD.PACK PO SCH ×2 (07:00→09:00)
--- NOTE | 2023-03-29 07:16 | RAD REPORT ---
EXAM DESCRIPTION: US - Renal Ultrasound-Complete - 03/29/2023 5:48 am CLINICAL HISTORY: uncontrolled htn COMPARISON: Chest Abdomen Pelvis W Cont dated 03/25/2023 FINDINGS: Both kidneys are normal in size, shape and echotexture. The right kidney measures . No hydronephrosis, focal mass or perinephric fluid. The left kidney measures . No hydronephrosis, focal mass or perinephric fluid. The urinary bladder is incompletely distended without gross abnormality seen. IMPRESSION: No evidence of hydronephrosis. Unremarkable renal ultrasound.
[2023-03-29] MEDS ORDERED: DOXYCYCLINE HYCLATE 100MG INJ ONE (07:40)
[2023-03-29] MEDS: VALSARTAN 40 MG TAB PO SCH ×2 (08:06→21:37)
[2023-03-29] MEDS: AMLODIPINE 2.5 MG TAB PO SCH (08:06)
[2023-03-29] MEDS: ENOXAPARIN 40 MG/0.4 ML SQ SCH (08:07)
[2023-03-29] MEDS: CEFTRIAXONE 1,000 MG in NA CHLORIDE 0.9% 50 ML IVPB SCH (08:07)
[2023-03-29] MEDS: DOXYCYCLINE 100 MG in NA CHLORIDE 0.9% 100 ML IVPB SCH ×2 (08:08→21:38)
[2023-03-29 08:59] LABS: Specific Gravity 1.012 (1.005-1.030); Urine Bacteria None Seen /HPF (<20); Urine Bilirubin NEGATIVE (Negative); Urine Blood Negative (Negative); Urine Clarity Clear (Clear); Urine Color Light-Yellow (Yellow); Urine Glucose NEGATIVE (Negative); Urine Protein NEGATIVE (Negative); Urine Urobilinogen Normal (Normal); Urine pH 6.5 (5.0-7.0)
--- NOTE | 2023-03-29 13:50 | P.PN ---
Subjective Date of Service: 03/29/23 Chief Complaint: Hyponatremia, pneumonia No acute events overnight. Her sodium is improving. Although her breathing is improving, she requires 4 L nasal cannula. She states that she is not on oxygen at home. She denies any fevers, chills, chest pain, or palpitations. Review of Systems 10-point ROS is otherwise unremarkable General: Weakness (generalized) Physical Examination - Vital Signs Temperature: 98.2 F Blood Pressure: 148/69 Pulse: 79 Respirations: 16 Pulse Ox (%): 95 Assessment And Plan - Plan - Physical Exam General: Alert, In no apparent distress, Oriented x3 HEENT: Atraumatic, Mucous membr. moist/pink, Sclerae nonicteric Respiratory: Diminished, Rhonchi/gurgles (faint upper right lung pickard) Cardiovascular: No edema, No murmurs, Regular rate/rhythm Gastrointestinal: Soft, Non-distended, No tenderness Musculoskeletal: No clubbing Integumentary: No rashes Neurological: Normal speech, Normal affect # Sepsis likely secondary to Atypical Pneumonia # Left Maxillary Sinusitis She meets SIRS criteria based on HR > 90 bpm and RR > 20 breaths/min, and the suspected source is pneumonia. Legionella is on the differential given hyponatremia. - Radiology: - Chest x-ray = "mild reticular opacities right lung may indicate atypical pneumonia." - CT chest/abdomen/pelvis = "mild tree-in-bud opacities right upper lobe may indicate an atypical pneumonia." - CT head = "no acute intracranial abnormality is seen." - Sepsis order set was initiated - Initial Lactate was 0.9 - Blood cultures drawn - Broad spectrum antibiotics started: Ceftriaxone + Doxycycline - In regards to fluids: - 30 mL/kg of IV fluids was not administered given SBP > 90, MAP > 65, lactic acid < 4 - She remains on 4 L nasal cannula - wean as tolerated - Obtain ambulatory oxygen testing to see if she qualifies for home oxygen # Severe Hyponatremia # Hypokalemia - Suspect due to hydrochlorothiazide use - Continue IV fluids for now - Nephrology consulted - recommendations appreciated S/p desmopressin - TSH = 0.39 # Hypertension - Hold home anti-hypertensives due to concern for sepsis # Hyperlipidemia - Continue home atorvastatin Manuel Coles M.D.
--- NOTE | 2023-03-29 20:46 | P.PN ---
Date of Service: 03/30/23 Subjective: ROS: 10 point ROS as noted above, otherwise negative Physical Exam: Gen: Alert,oriented, NAD HEENT: normal conjunctiva, sclera anicteric CV: regular rate & rhythm, no edema Pulm: non-labored respirations on 3L NC, diminished at bases b/l, rh onchi/gurgles Abd: soft, non-tender, non-distended MSK: no joint tenderness Neuro: normal speech, normal affect, moves all extremities Problem List: 1. Sepsis likely secondary to Atypical Pneumonia 2. Left Maxillary Sinusitis 3. Severe Hyponatremia 4. Hypokalemia 5. Hypertension 6. Hyperlipidemia PLAN CT chest/abdomen/pelvis (03/25):mild tree-in-bud opacities right upper lobe may indicate an atypical pneumonia. CT head(03/25): negative Blood culture: NGTD Urine culture: pending continue empiric rocephin and doxycycline (03/27-) wean oxygen as tolerated Continue IVF Nephrology consulted S/p desmopressin Hold home anti-hypertensives due to concern for sepsis Continue home atorvastatin VTE: Lovenox
[2023-03-29] MEDS ORDERED: D5W 1,000 ML IV SCH (21:00)
[2023-03-29] MEDS: METOPROLOL XL 100 MG TAB PO SCH (21:37)
[2023-03-29] MEDS: ATORVASTATIN 10 MG TAB PO SCH (21:38)
--- NOTE | 2023-03-30 00:48 | PN ---
Date of Progress Note: 03/29/2023 Chief Complaint: Hyponatremia hypoosmolar state, pneumonia. History Of Present Illness: The patient came to the hospital because of shortness of breath, general ized weakness, and dyspnea. She was found to have pneumonia and hyponatremia. She had CT scan done with contrast. Sodium on arrival to the hospital was 119 and improved gradually to 128 and then decr eased to 123. The patient received tolvaptan 1 dose and IV fluids were minimized. The patient is im proving. She denies shortness of breath. Sodium level is gradually improving. The patient received D5W to slow down correction of the hyponatremia. Review of Systems: Denies chest pain or palpitation. Physical Examination: Lungs: Clear to auscultation bilaterally. Heart: S1 and S2. Abdomen: Soft. Extremities: No edema. Assessment: 1.Hyponatremia secondary to ADH state from dyspnea, pneumonia, and in addition, the patient had hypo natremia secondary to HCTZ complicated by hypokalemia and hypophosphatemia due to low solute intake a nd diuretic treatment. Plan is to avoid thiazide permanently. Monitor BNP. Minimize IV fluids. Co ntinue hydration with D5W as needed. Avoid normal saline infusion. Continue to monitor BMP closely. 2.Hypertension. Metoprolol was resumed and adjust medication. Avoid HCTZ. 3.Respiratory failure secondary to pneumonia. Continue antibiotics. 4.Sepsis secondary to pneumonia and left maxillary sinusitis, on antibiotics. 5.Hypokalemia. Monitor magnesium and phosphorus level. Continue treatment with potassium chloride and potassium phosphate. EB/MODL Voice ID: [id number] Report ID: [id number]
[2023-03-30 03:25] LABS: Phosphorus 2.5 mg/dL (2.5-4.9); Potassium 4.1 mEq/L (3.5-5.1)
[2023-03-30] MEDS ORDERED: DOXYCYCLINE HYCLATE 100MG INJ ONE (07:35)
[2023-03-30] MEDS: DOXYCYCLINE 100 MG in NA CHLORIDE 0.9% 100 ML IVPB SCH ×2 (08:11→21:55)
[2023-03-30] MEDS: CEFTRIAXONE 1,000 MG in NA CHLORIDE 0.9% 50 ML IVPB SCH (08:12)
[2023-03-30] MEDS: ENOXAPARIN 40 MG/0.4 ML SQ SCH (08:12)
[2023-03-30] MEDS: AMLODIPINE 2.5 MG TAB PO SCH (08:13)
[2023-03-30] MEDS: VALSARTAN 40 MG TAB PO SCH ×2 (08:13→21:55)
[2023-03-30 21:16] VITALS: O2SAT 91
[2023-03-30] MEDS: ATORVASTATIN 10 MG TAB PO SCH (21:56)
[2023-03-30] MEDS: METOPROLOL XL 100 MG TAB PO SCH (21:56)
[2023-03-30] MEDS: D5W 1,000 ML IV SCH (22:03)
--- NOTE | 2023-03-31 02:30 | PN ---
Date of Progress Note: 03/30/2023 Chief Complaint: Hyponatremia, hyposmolar state, pneumonia. History Of Present Illness: The patient came to the hospital because of shortness of breath, general ized weakness, and dyspnea. She was found to have pneumonia and hyponatremia. She had CT scan done with IV contrast. Sodium on arrival to the hospital was 119 and improved gradually to 128, then decr eased to 123. The patient received tolvaptan 1 dose and IV fluids were minimized. The patient is im proving. She denies shortness of breath. Denies nausea, vomiting. Denies dysuria. She was found t o have hematuria. Review of Systems: Denies chest pain, palpitation. Physical Examination: Lungs: Clear to auscultation bilaterally. Heart: S1, S2. Abdomen: Soft, benign. Extremities: No edema. Impression And Plan: 1.Hyponatremia secondary to ADH state from dyspnea, pneumonia and in addition patient had hyponatrem ia secondary to HCTZ, complicated by hypokalemia and hypophosphatemia due to low solute intake and di uretic treatment. Plan is to avoid thiazide permanently. Monitor BNP. Minimize IV fluids. Continu e hydration with D5W as needed. 2.Hypertension. Metoprolol was resumed and plan is to adjust medication. 3.Respiratory failure secondary to pneumonia. Continue antibiotics. 4.Sepsis secondary to pneumonia and left maxillary sinus on antibiotics. 5.Hypokalemia. Monitor magnesium and phosphorus level . Continue treatment with potassium chloride and potassium phosphate as needed according to lab results . SUKHJINDER/MODL Voice ID: [id number] Report ID: [id number]
[2023-03-31 03:35] LABS: Potassium 3.9 mEq/L (3.5-5.1)
--- NOTE | 2023-03-31 07:18 | RAD REPORT ---
EXAM DESCRIPTION: RAD - Chest Single View - 03/31/2023 6:36 am CLINICAL HISTORY: pneumonia COMPARISON: Chest Single View dated 03/25/2023; Chest Abdomen Pelvis W Cont dated 03/25/2023 FINDINGS: Lines: None. Lungs: Improved lung volumes. Minimal right middle lobe nodularity is similar. Pleural: No significant pleural effusions or pneumothorax. Cardiac: The heart size is within normal limits. Mediastinum: Within normal limits. Bones: No acute fractures. Other: None IMPRESSION: Improved lung volumes. Mild residual nodularity in the right middle lobe. No consolidati ve airspace disease or edema.
[2023-03-31 08:49] VITALS: BP 189/93; TEMP 98.2
[2023-03-31] MEDS ORDERED: POTASSIUM CL SA 10 MEQ TAB PO ONE (09:00)
[2023-03-31] MEDS: AMLODIPINE 2.5 MG TAB PO SCH (09:52)
[2023-03-31] MEDS: DOXYCYCLINE 100 MG in NA CHLORIDE 0.9% 100 ML IVPB SCH (09:53)
[2023-03-31] MEDS: ENOXAPARIN 40 MG/0.4 ML SQ SCH (09:53)
[2023-03-31] MEDS: CEFTRIAXONE 1,000 MG in NA CHLORIDE 0.9% 50 ML IVPB SCH (09:54)
[2023-03-31] MEDS: VALSARTAN 40 MG TAB PO SCH (10:01)
[2023-03-31] MEDS: D5W 1,000 ML IV SCH (10:20)
[2023-03-31] MEDS ORDERED: LOSARTAN POTASSIUM 50 MG TABLET PO ONE (10:40)
[2023-04-01 12:03] LABS: Albumin, (SPE) 2.8 g/dL (3.8-4.8); Alpha-1-Globulins 0.3 g/dL (0.2-0.3); Alpha-2-Globulins 0.7 g/dL (0.5-0.9); Gamma Globulins 1.1 g/dL (0.8-1.7); INTERPRETATION REPORT
[2023-04-05 00:07] LABS: Beta Globulin 24 HR Urine 16 %; Gamma Globulin, 24hr Urine 15 %; Interpretation: REPORT; Protein/Crea Ratio in g 326 mg/g creat (<150); Protein/Crea Ratio in mg 0.326 (<0.150); Urine Alpha-2-Globulins, 24 Hr 16 %; Urine PEP Abn Protein Band1 REPORT; Urine Total Volume 24 Hours 1200 mL
== END 2023-03-31 12:25 | disposition home or self-care (01) | DRG 871 ==
LOC: ER 15:47 → ERHOLD 19:39 → 3RD-ICU 20:55 → 2ND 03-26 22:15
PROVIDERS: ADMIT Internal Medicine; ATTEND Hospitalist
DX: A41.9 Sepsis, unspecified organism (principal); J18.9 Pneumonia, unspecified organism; J96.01 Acute respiratory failure with hypoxia; E87.1 Hypo-osmolality and hyponatremia; I10 Essential (primary) hypertension; E87.6 Hypokalemia; J32.0 Chronic maxillary sinusitis; E83.39 Other disorders of phosphorus metabolism; E78.00 Pure hypercholesterolemia, unspecified; T50.2X5A Adverse effect of carbonic-anhydrase inhibitors, benzothiadiazides and other diuretics, initial encounter; R31.9 Hematuria, unspecified; Z60.2 Problems related to living alone; Z88.1 Allergy status to other antibiotic agents; Z88.0 Allergy status to penicillin; Z90.13 Acquired absence of bilateral breasts and nipples; Z79.899 Other long term (current) drug therapy
CPT/HCPCS: 36415; 36600; 70450; 71045; 71260; 74177; 76770; 80048; 80051; 80053; 80061; 81001; 82533; 82570; 82805; 83605; 83735; 83880; 83930; 83935; 84100; 84132; 84165; 84166; 84295; 84300; 84439; 84443; 84484; 84550; 85025; 85610; 86021; 87040; 87070; 87086; 87088; 87205; 87635; 87804; 93005; 94010; 94640; 97116; 97161; 97530; 99285; J0360; J0696; J1650; J2597; J2920; J3475; J3480; J7040; J7050; J7120; J7613; J7644; J8499; Q9967